=== PATIENT | female | born 1945 | race Caucasian/White ===

== ENCOUNTER → 2016-07-16 | Day surgery (SDC) | payer MEDICARE, OTHER ==
[~2016-07-16] MED LIST: ASPIRIN325 M1; ASPIRIN81 M2 PO; BENTYL20 MG PO; CITRUS BIOFLAV120 GM; CITRUS BIOFLAV120 GM PO; GLUCOSAMINE H1500 MG PO; GLUCOSAMINE S1000 M1 PO; IBUPROFEN800 MG PO; INOSITOL650 MG PO; KEFLEX; LEVOTHROID100 MC1 PO; MOBIC15 MG PO; NIACIN500 M2 PO; OMEGA 3 FISH1 CAP.EC PO; RANITIDINE HCL150 M1 PO; SALMON OIL 1,001 CAP PO; TUMERIC PO; VIT E; VITAL-D RX TABL1 TAB PO; VITAMIN C1000 M2 PO; VITAMIN D35000 UNIT PO; VITAMIN E400 UNI2 PO; VOL-CARE RX TA1 EACH PO; WOMEN'S DAILY F1 TAB PO; ZOFRAN ODT4 MG PO; ZYRTEC10 M2 PO; [UNRECOGNIZED DRUG - OTHER] PO; [UNRECOGNIZED DRUG - OTHER] PO
--- NOTE | ~2016-07-16 | OR ---
Unit #: [id number] #: [id number] Patient: DONI VALENCIA [id number] [address] [id number] MR#: [id number] NAME: DONI VALENCIA. ROOM: Date of Procedure: 07/16/2016 Admission Date: 07/16/2016 Surgeon: Koko Meneses M.D. : 1945 Attending Physician: Koko Meneses M.D. Referring Physician: Koko Meneses M.D. Primary Care Physician: Lakeshia William A.P.R.N. OPERATIVE REPORT INDICATIONS FOR PROCEDURE Esophagogastroduodenoscopy with biopsy. INDICATIONS FOR PROCEDURE The patient with persistent epigastric pain, nausea, and vomiting, undergoing evaluation with upper endoscopy. MEDICATIONS Monitored anesthesia. POSTOPERATIVE FINDINGS 1. Mild gastritis, few small erosions, possible small ulcers. Biopsies taken. 2. Small hiatal hernia. 3. Mild LA grade A esophagitis. 4. Normal duodenum and distal duodenum. PLAN PPI therapy. Avoid NSAIDs. DESCRIPTION OF PROCEDURE The patient was explained of the procedure, risks, and benefits along with risks and benefits of anesthesia. She was brought to the endoscopy room. Propofol anesthesia was given. Bite block was placed. The scope was passed down the mouth into the esophagus, stomach, duodenum, and distal duodenum. Findings as described. Biopsies taken. Gently, I pulled the scope out of the patient's mouth. She tolerated it well. No major complications were seen. Dictated by... Yolette Kiser/luis TD: 07/17/2016 02:12 JOB #: [id number] Unit #: [id number] #: [id number] Patient: DONI VALENCIA OPERATIVE REPORT Page 1 of 1 X Koko Meneses MD X PROCEDURE OPERATIVE NOTE
== END | disposition home or self-care (01) ==
LOC: COPS 06:29
PROVIDERS: Internal Medicine
PROC: 0DB68ZX Excision of Stomach, Via Natural or Artificial Opening Endoscopic, Diagnostic (ICD-10-PCS; principal; 2016-07-16 08:30)
DX: K29.50 Unspecified chronic gastritis without bleeding (principal); K44.9 Diaphragmatic hernia without obstruction or gangrene; K21.0 Gastro-esophageal reflux disease with esophagitis; E03.9 Hypothyroidism, unspecified; M19.90 Unspecified osteoarthritis, unspecified site; M54.9 Dorsalgia, unspecified; Z79.899 Other long term (current) drug therapy; Z90.49 Acquired absence of other specified parts of digestive tract; Z96.652 Presence of left artificial knee joint; Z90.710 Acquired absence of both cervix and uterus; Z88.5 Allergy status to narcotic agent; Z88.8 Allergy status to other drugs, medicaments and biological substances; Z88.6 Allergy status to analgesic agent; Z98.890 Other specified postprocedural states
CPT/HCPCS: 88305; 88312